=== PATIENT | female | born 1940 | race Caucasian/White ===

== ENCOUNTER 2017-02-11 18:40 | Inpatient (IN) | payer MEDICARE, OTHER ==
[~2017-02-11] VITALS: Ht 167.6 cm; Wt 81.0 kg
[~2017-02-11 18:40] MED LIST: ALBUAER3 IN; ALLO300T79 PO; ASPI81CH59 PO; ATOR10TA PO; CALCTAB25 PO; CYA100I PO; DOCU-94 PO; ENA10T GT; ERGO1CAP6 PO; FENO5TAB PO; FLUT110A INH; FURO40TA PO; GABA300C10 PO; LEVO75TA42 PO; NOR10T PO; RASA1TAB PO; SENN8.6T8 PO
[2017-02-11] MEDS ORDERED: ACETAMINOPHEN 325 MG TAB PO ONE (20:15)
[2017-02-11 20:24] LABS: Basophils # (auto) 0 uL; Basophils % (auto) 0.4 % (0.0-2.0); Eosinophils # (auto) 0 uL; Eosinophils % (auto) 0.2 % (0.0-7.0); Hematocrit 38.9 % (36.0-46.0); Hemoglobin 12.9 g/dL (12.2-16.2); Lymphocytes # (auto) 0.6 uL; Lymphocytes % (auto) 5.8 % (10.0-50.0); Mean Corpuscular Hemoglobin 32.7 pg (28.0-32.0); Mean Corpuscular Hgb Conc. 33.1 g/dL (32.0-36.0); Mean Corpuscular Volume 98.7 fL (80.0-100.0); Monocytes # (auto) 0.4 uL; Monocytes % (auto) 4.1 % (0.0-12.0); Neutrophils # (auto) 9.5 uL; Neutrophils % (auto) 89.5 % (37.0-80.0); Platelet Count (auto) 180 10^3/uL (140-450); Red Blood Cells 3.95 10^6/uL (4.0-5.20); Red Cell Distribution Width 14.1 % (11.8-14.3); White Blood Cell 10.7 10^3/uL (4.4-10.8)
[2017-02-11 20:44] LABS: Albumin 3.1 g/dL (3.4-5.0); Calcium 8.4 mg/dL (8.5-10.1); Potassium 3.5 mmol/L (3.5-5.1)
[2017-02-11 20:48] LABS: Bilirubin, Total 0.7 mg/dL (0.2-1.0)
[2017-02-11 20:49] LABS: Total Protein 6.9 g/dL (6.4-8.2)
[2017-02-12] MEDS ORDERED: SODIUM CHLORIDE 0.9% 1,000 ML IV ONE ×3 (00:02→00:45)
[2017-02-12] MEDS ORDERED: PIPERACILLIN-TAZOB 3.375GM 50 ML IV ONE (00:15)
[2017-02-12] MEDS ORDERED: GABAPENTIN 300 MG CAP PO ONE (00:45)
[2017-02-12] MEDS ORDERED: ONDANSETRON HCL 4 MG/2 ML VIAL IV PRN (04:45)
[2017-02-12] MEDS ORDERED: ACETAMINOPHEN 500 MG TAB PO PRN (04:45)
[2017-02-12] MEDS ORDERED: DOXYCYCLINE HYC 100MG/250ML 250 ML IV SCH (05:00)
[2017-02-12] MEDS: IPRATROPIUM BROM 0.5 MG/2.5ML INH SOL NEB SCH ×3 (05:29→18:47)
[2017-02-12] MEDS: ALBUTEROL SULF 2.5 MG/0.5ML(0.5%) NEB SOLN NEB SCH ×3 (05:29→18:47)
[2017-02-12] MEDS ORDERED: methylPREDNISolone SOD SUCC 40 MG/ML VL IV SCH (06:00)
[2017-02-12] MEDS: GABAPENTIN 100 MG CAP PO SCH ×3 (06:00→22:25)
[2017-02-12 06:17] LABS: Basophils # (auto) 0 uL; Basophils % (auto) 0.3 % (0.0-2.0); Eosinophils # (auto) 0.1 uL; Eosinophils % (auto) 0.9 % (0.0-7.0); Hematocrit 38.2 % (36.0-46.0); Hemoglobin 12.7 g/dL (12.2-16.2); Lymphocytes # (auto) 0.8 uL; Lymphocytes % (auto) 10.1 % (10.0-50.0); Mean Corpuscular Hemoglobin 32.8 pg (28.0-32.0); Mean Corpuscular Hgb Conc. 33.2 g/dL (32.0-36.0); Mean Corpuscular Volume 98.9 fL (80.0-100.0); Monocytes # (auto) 0.4 uL; Monocytes % (auto) 5.2 % (0.0-12.0); Neutrophils # (auto) 6.8 uL; Neutrophils % (auto) 83.5 % (37.0-80.0); Platelet Count (auto) 154 10^3/uL (140-450); Red Blood Cells 3.86 10^6/uL (4.0-5.20); Red Cell Distribution Width 14.3 % (11.8-14.3); White Blood Cell 8.1 10^3/uL (4.4-10.8)
[2017-02-12 06:37] LABS: BUN/Creatinine Ratio 26.9; Calcium 8.3 mg/dL (8.5-10.1); Potassium 3.7 mmol/L (3.5-5.1)
[2017-02-12] MEDS: LEVOTHYROXINE SODIUM 50 MCG TAB PO SCH (07:00)
[2017-02-12] MEDS: METOPROLOL SUCCINATE XL 50 MG TAB PO SCH (10:00)
[2017-02-12] MEDS: ASPirin-EC 81 mg tab PO SCH (10:00)
[2017-02-12] MEDS ORDERED: OSELTAMIVIR 75 MG CAP PO ONE (10:45)
[2017-02-12] MEDS ORDERED: ALBUTEROL SULF 2.5 MG/0.5ML(0.5%) NEB SOLN NEB PRN (10:45)
[2017-02-12] MEDS: OSELTAMIVIR 30 MG CAP PO SCH ×2 (11:00→22:25)
[2017-02-12] MEDS ORDERED: OSELTAMIVIR 30 MG CAP PO ONE (11:00)
[2017-02-12] MEDS ORDERED: LEVOFLOXACIN 500MG 100 ML IV ONE (11:00)
[2017-02-12] MEDS ORDERED: DEXTROSE (50%) 50ML SYRG IV ONE (15:15)
[2017-02-12] MEDS ORDERED: InsuLIN REG 1unit/0.01ml Soln (100units/ml) SC ONE (17:00)
[2017-02-12] MEDS ORDERED: ACCU-CHEK COMFORT CURVE STRIP VI ONE (17:00)
[2017-02-12 17:04] VITALS: BP 162/76
[2017-02-12] MEDS: HYDROcodone-ACET 5/325MG TAB PO PRN (20:45)
[2017-02-12] MEDS ORDERED: METO-169 PO (21:05)
[2017-02-12] MEDS ORDERED: OMEP20CA74 PO (21:05)
[2017-02-12] MEDS ORDERED: FURO80TA PO (21:05)
[2017-02-12] MEDS ORDERED: POTA20TA53 PO (21:05)
[2017-02-12] MEDS ORDERED: FLUT100I IN (21:05)
[2017-02-12] MEDS ORDERED: FENO5TAB PO (21:05)
[2017-02-12] MEDS ORDERED: ALPR0.25 PO (21:05)
[2017-02-12] MEDS ORDERED: ROFL1TAB2 PO (21:05)
[2017-02-12] MEDS ORDERED: RASA1TAB PO (21:05)
[2017-02-12] MEDS ORDERED: ALPRAZolam 0.25 MG TAB PO PRN (21:15)
[2017-02-12] MEDS ORDERED: DEXTROSE (50%) 50ML SYRG IV PRN (21:30)
[2017-02-12 22:00] VITALS: BP 153/76
[2017-02-12] MEDS ORDERED: ATORVASTATIN 20 MG TAB PO SCH (22:00)
[2017-02-12] MEDS: POTASSIUM CHL 20 Meq TABLET PO SCH (22:24)
[2017-02-12] MEDS: methylPREDNISolone SOD SUCC 40 MG/ML VL IV SCH (22:24)
[2017-02-12] MEDS: ACCU-CHEK COMFORT CURVE STRIP VI SCH (22:25)
[2017-02-12] MEDS: ATORVASTATIN 20 MG TAB PO SCH (22:25)
[2017-02-12] MEDS: InsuLIN REG 1unit/0.01ml Soln (100units/ml) SC SCH (22:25)
[2017-02-12 23:27] LABS: Urine Bacteria NONE SEEN /hpf (None Seen); Urine Blood Negative /uL (Negative); Urine Specific Gravity 1.014 (1.001-1.035); Urine WBC <1 /hpf (0 - 5)
[2017-02-13] MEDS: IPRATROPIUM BROM 0.5 MG/2.5ML INH SOL NEB SCH ×4 (00:20→18:24)
[2017-02-13] MEDS: ALBUTEROL SULF 2.5 MG/0.5ML(0.5%) NEB SOLN NEB SCH ×4 (00:20→18:24)
[2017-02-13 05:30] VITALS: BP 139/64
[2017-02-13] MEDS: GABAPENTIN 100 MG CAP PO SCH ×3 (06:25→22:14)
[2017-02-13] MEDS: LEVOTHYROXINE SODIUM 50 MCG TAB PO SCH (06:25)
[2017-02-13] MEDS: FUROSEMIDE 20 MG TAB PO SCH ×2 (06:25→18:44)
[2017-02-13] MEDS: InsuLIN REG 1unit/0.01ml Soln (100units/ml) SC SCH ×4 (06:26→22:15)
[2017-02-13] MEDS: ACCU-CHEK COMFORT CURVE STRIP VI SCH ×4 (06:26→22:15)
[2017-02-13 09:00] VITALS: BP 141/72
[2017-02-13] MEDS: methylPREDNISolone SOD SUCC 40 MG/ML VL IV SCH (10:15)
[2017-02-13] MEDS: LEVOFLOXACIN 250MG 50 ML IV SCH (10:15)
[2017-02-13] MEDS: POTASSIUM CHL 20 Meq TABLET PO SCH ×2 (10:16→22:14)
[2017-02-13] MEDS: METOPROLOL SUCCINATE XL 50 MG TAB PO SCH (10:16)
[2017-02-13] MEDS: ASPirin-EC 81 mg tab PO SCH (10:16)
[2017-02-13 13:00] VITALS: BP 136/61
[2017-02-13] MEDS: OSELTAMIVIR 75 MG CAP PO SCH ×2 (15:06→22:00)
[2017-02-13 17:12] VITALS: BP 153/72
[2017-02-13 22:04] VITALS: BP 131/62
[2017-02-13 22:11] VITALS: BP 156/74
[2017-02-13] MEDS: ATORVASTATIN 20 MG TAB PO SCH (22:14)
[2017-02-13] MEDS: predniSONE 20 MG TAB PO SCH (22:14)
[2017-02-13] MEDS: HYDROcodone-ACET 5/325MG TAB PO PRN (22:15)
[2017-02-14] MEDS: IPRATROPIUM BROM 0.5 MG/2.5ML INH SOL NEB SCH ×3 (00:15→11:14)
[2017-02-14] MEDS: ALBUTEROL SULF 2.5 MG/0.5ML(0.5%) NEB SOLN NEB SCH ×3 (00:15→11:14)
[2017-02-14 05:13] VITALS: BP 150/77
[2017-02-14] MEDS: GABAPENTIN 100 MG CAP PO SCH (05:33)
[2017-02-14] MEDS: FUROSEMIDE 20 MG TAB PO SCH (05:33)
[2017-02-14] MEDS: LEVOTHYROXINE SODIUM 50 MCG TAB PO SCH (06:44)
[2017-02-14] MEDS: InsuLIN REG 1unit/0.01ml Soln (100units/ml) SC SCH ×2 (06:45→11:38)
[2017-02-14 09:00] VITALS: BP 144/70
[2017-02-14] MEDS: OSELTAMIVIR 75 MG CAP PO SCH (10:00)
[2017-02-14] MEDS: ASPirin-EC 81 mg tab PO SCH (10:18)
[2017-02-14] MEDS: LEVOFLOXACIN 250MG 50 ML IV SCH (10:18)
[2017-02-14] MEDS: predniSONE 20 MG TAB PO SCH (10:18)
[2017-02-14] MEDS: POTASSIUM CHL 20 Meq TABLET PO SCH (10:18)
[2017-02-14] MEDS: METOPROLOL SUCCINATE XL 50 MG TAB PO SCH (10:19)
[2017-02-14] MEDS: ACCU-CHEK COMFORT CURVE STRIP VI SCH (11:30)
[2017-02-14 12:25] VITALS: BP 153/77
[2017-02-14 13:00] VITALS: BP 153/77
[2017-02-14] MEDS ORDERED: MULTIPLE VITAMIN TAB PO ONE (15:00)
[2017-02-14] MEDS ORDERED: ASCORBIC ACID 500 MG TAB PO ONE (15:00)
[2017-02-15] MEDS ORDERED: MULTIPLE VITAMIN TAB PO SCH (10:00)
[2017-02-15] MEDS ORDERED: ASCORBIC ACID 500 MG TAB PO SCH (10:00)
== END 2017-02-14 14:04 | disposition home or self-care (01) | DRG 871 ==
LOC: EDBD 18:40 → ER 18:43 → OVERFLOW 18:44 → CENTRAL 02-12 14:50
PROVIDERS: ADMIT Nurse Practitioner Family; ATTEND Internal Medicine
DX: A41.9 Sepsis, unspecified organism (principal); J10.00 Influenza due to other identified influenza virus with unspecified type of pneumonia; E11.21 Type 2 diabetes mellitus with diabetic nephropathy; E11.42 Type 2 diabetes mellitus with diabetic polyneuropathy; N18.3 Chronic kidney disease, stage 3 (moderate); E11.621 Type 2 diabetes mellitus with foot ulcer; J44.0 Chronic obstructive pulmonary disease with (acute) lower respiratory infection; J44.1 Chronic obstructive pulmonary disease with (acute) exacerbation; L97.519 Non-pressure chronic ulcer of other part of right foot with unspecified severity; E03.9 Hypothyroidism, unspecified; E66.9 Obesity, unspecified; E78.5 Hyperlipidemia, unspecified; L97.529 Non-pressure chronic ulcer of other part of left foot with unspecified severity; I13.10 Hypertensive heart and chronic kidney disease without heart failure, with stage 1 through stage 4 chronic kidney disease, or unspecified chronic kidney disease; M10.9 Gout, unspecified; Z83.3 Family history of diabetes mellitus; Z79.899 Other long term (current) drug therapy; Z79.82 Long term (current) use of aspirin; Z82.49 Family history of ischemic heart disease and other diseases of the circulatory system; Z90.710 Acquired absence of both cervix and uterus; Z79.51 Long term (current) use of inhaled steroids; Z90.89 Acquired absence of other organs; Z82.61 Family history of arthritis; Z81.2 Family history of tobacco abuse and dependence; Z83.49 Family history of other endocrine, nutritional and metabolic diseases; Z68.28 Body mass index [BMI] 28.0-28.9, adult
CPT/HCPCS: 36415; 71010; 80048; 80053; 81001; 82962; 83036; 83605; 83880; 84443; 85025; 87040; 87070; 87077; 87186; 87205; 87400; 93005; 93970; 94640; 96361; 96365; G9035; J1815; J1956; J2543; J3490